=== PATIENT | female | born 1975 | race Caucasian/White ===

== ENCOUNTER 2017-02-11 00:25 | Emergency (ER) | payer MEDICAID ==
[2017-02-11] MEDS ORDERED: GABAPENTIN 300 MG CAPSULE PO ONE (02:12)
[2017-02-11] MEDS ORDERED: MORPHINE SULFATE IR 15 MG TABLET PO ONE (02:12)
--- NOTE | 2017-02-11 02:15 | ER Document Report ---
ED General - General Chief Complaint: Hand Pain Stated Complaint: HAND PAIN Time Seen by Provider: 02/11/17 01:40 Notes: Patient is a 41-year-old female with past medical history of bilateral carpal tunnel syndrome who presents with ongoing severe pain and swelling to the affected areas of bilateral hands. Describes the pain as a constant, severe, burning pain. Nothing worsens the pain. States she has been taking ibuprofen with minimal to no relief in the pain is to the point where she can no longer sleep. She was receiving Percocet and gabapentin from her primary care doctor but has not been able to revisit with him after running out of her medications. She denies any additional new or acute concerns. TRAVEL OUTSIDE OF THE [place] IN LAST 30 DAYS: No - Related Data Allergies/Adverse Reactions: No Known Allergies Allergy (Verified 08/31/16 09:38) Past Medical History - General Information source: Patient - Social History Smoking Status: Never Smoker Frequency of alcohol use: None Drug Abuse: None Lives with: Spouse/Significant other Family History: Reviewed & Not Pertinent Patient has suicidal ideation: No Patient has homicidal ideation: No - Past Medical History Cardiac Medical History: Denies: Hx Atrial Fibrillation, Hx Congestive Heart Failure, Hx Coronary Artery Disease, Hx DVT, Hx Heart Attack, Hx Hypercholesterolemia, Hx Hypertension, Hx Peripheral Vascular Disease, Hx Pulmonary Embolism, Hx Heart Murmur Pulmonary Medical History: Denies: Hx Asthma, Hx Bronchitis, Hx COPD, Hx Pneumonia, Hx Intubation, Hx Respiratory Failure, Hx Sleep Apnea, Hx Tuberculosis Neurological Medical History: Denies: Hx Migraine, Hx Seizures Endocrine Medical History: Denies: Hx Diabetes Mellitus Type 1, Hx Diabetes Mellitus Type 2, Hx Hyperthyroidism, Hx Hypothyroidism Renal/ Medical History: Denies: Hx End Stage Renal Disease, Hx Peritoneal Dialysis - Immunizations Hx Diphtheria, Pertussis, Tetanus Vaccination: Yes - 2011 Review of Systems - Review of Systems Notes: Constitutional: Negative for fever. HENT: Negative for sore throat. Eyes: Negative for visual changes. Cardiovascular: Negative for chest pain. Respiratory: Negative for shortness of breath. Gastrointestinal: Negative for abdominal pain, vomiting or diarrhea. Genitourinary: Negative for dysuria. Musculoskeletal: Positive for bilateral hand pain Skin: Negative for rash. Neurological: Negative for headaches, weakness or numbness. 10 point ROS negative except as marked above and in HPI. Physical Exam - Vital signs Vitals: Temp Pulse Resp BP Pulse Ox 98.0 F 78 16 170/116 H 99 02/11/17 00:28 02/11/17 00:28 02/11/17 00:28 02/11/17 00:28 02/11/17 00:28 Interpretation: Hypertensive Notes: PHYSICAL EXAMINATION: GENERAL: Well-appearing, well-nourished and in no acute distress. HEAD: Atraumatic, normocephalic. EYES: sclera anicteric, conjunctiva are normal. ENT: Moist mucous membranes. NECK: Normal range of motion LUNGS: Normal work of breathing HEART: 2+ radial pulses bilaterally EXTREMITIES: There is mild edema of the bilateral hands. Full flexion- extension of all digits bilaterally. Compartments are soft. NEUROLOGICAL: No focal neurological deficits. Moves all extremities spontaneously and on command. PSYCH: Normal mood, normal affect. SKIN: Warm, Dry, normal turgor, no rashes or lesions noted. Course - Re-evaluation Re-evalutation: 02/11/17 02:14 Patient presents with bilateral hand swelling with associated severe pain that she has had chronically in the past secondary to bilateral carpal tunnel syndrome. She has been following with her primary care doctor but has been unable to follow-up in his office secondary to transportation issues. She is scheduled to see neurology within the next several days. Patient's hands are visibly edematous and do appear exquisitely painful. Exam is consistent with acute carpal tunnel syndrome with associated edema and swelling. She will be restarted on gabapentin, ibuprofen and given a very small amount of oral morphine. She otherwise has strong radial pulses, full flexion and extension of all digits. At this time will discharge with return precautions and follow- up recommendations. Verbal discharge instructions given a the bedside and opportunity for questions given. Medication warnings reviewed. Patient is in agreement with this plan and has verbalized understanding of return precautions and the need for primary care follow-up in the next 24-72 hours. - Vital Signs Vital signs: Temp Pulse Resp BP Pulse Ox 98.0 F 78 16 170/116 H 99 02/11/17 00:28 02/11/17 00:28 02/11/17 00:28 02/11/17 00:28 02/11/17 00:28 Discharge - Discharge Clinical Impression: Bilateral carpal tunnel syndrome Condition: Good Disposition: HOME, SELF-CARE Additional Instructions: Please follow-up with your primary care doctor as soon as possible regarding her chronic pain in her hands. Take gabapentin 300 mg 3 times daily. For your pain: Take ibuprofen 600 mg and acetaminophen 1000 mg every 6 hours together as needed for pain. If this does not control your pain you may take 15 mg of oral morphine every 4 hours as needed. Please be very careful about using the oral morphine and only use this for severe pain. Return if you have worsening of your pain, developed fever, nausea, vomiting, spreading redness of the hands or any other symptoms that are worrisome to you. Prescriptions: Morphine Sulfate [Morphine Ir 15 mg Tablet] 15 mg PO Q4HP PRN #12 tablet PRN Reason: Gabapentin 300 mg PO TID #90 capsule Referrals: ESTEFANY GARCIA DO [Primary Care Provider] - Follow up tomorrow
[2017-02-11 02:32] VITALS: BP 163/96
== END 2017-02-11 02:35 | disposition home or self-care (01) ==
LOC: ER 00:25
DX: G56.03 Carpal tunnel syndrome, bilateral upper limbs (principal); M79.642 Pain in left hand; M79.641 Pain in right hand
CPT/HCPCS: 99283; J3490

== ENCOUNTER 2017-05-25 19:09 | Emergency (ER) | payer MEDICAID ==
[2017-05-25 19:20] VITALS: BP 136/96
[2017-05-25] MEDS ORDERED: LIDOCAINE 2% VISCOUS SOLN 20 ML UDCUP PO ONE (20:51)
[2017-05-25] MEDS ORDERED: KETOROLAC TROMETHAMINE 60 MG/2 ML SDV IM ONE (20:51)
--- NOTE | 2017-05-25 20:58 | ER Document Report ---
ED Oral Problem - General Chief Complaint: Toothache Stated Complaint: TOOTH PAIN Time Seen by Provider: 05/25/17 20:38 Mode of Arrival: Ambulatory Information source: Patient Notes: 41-year-old female presents to ED for dental pain and the right lower jaw 4 days. She states she Fell off her tooth. She also states she has pain in her left ear for the last several days. She states she also has throbbing in both hands from her carpal tunnel. TRAVEL OUTSIDE OF THE [place] IN LAST 30 DAYS: No - HPI Patient complains to provider of: Toothache, Other - left ear pain and bilateral hand pains. The bilateral hand pains is chronic from carpal tunnel and she sees a doctor that she gets Neurontin for. I explained to her that she need to follow-up with her doctor for the Neurontin Onset: Other - Dental pain 4 days left ear pain 4 days Severity: Moderate Pain Level: 4 Context: Other - Fell off of her tooth in the right lower jaw Associated symptoms: Earache, Toothache, Other - Pain in her hands Worsened by: Cold Relieved by: Nothing Similar symptoms previously: Yes Recently seen / treated by doctor/dentist: No - Related Data Allergies/Adverse Reactions: No Known Allergies Allergy (Verified 05/25/17 19:19) Past Medical History - General Information source: Patient - Social History Smoking Status: Never Smoker Cigarette use (# per day): No Chew tobacco use (# tins/day): No Smoking Education Provided: No Frequency of alcohol use: None Drug Abuse: None Lives with: Spouse/Significant other Family History: Reviewed & Not Pertinent Patient has suicidal ideation: No Patient has homicidal ideation: No - Past Medical History Cardiac Medical History: Reports: None Pulmonary Medical History: Reports: None EENT Medical History: Reports: None Neurological Medical History: Reports: None Endocrine Medical History: Reports: None Renal/ Medical History: Reports: None Malignancy Medical History: Reports: None GI Medical History: Reports: None Musculoskeltal Medical History: Reports Hx Musculoskeletal Deformity, Reports Hx Musculoskeletal Trauma Skin Medical History: Reports None Psychiatric Medical History: Reports: None Traumatic Medical History: Reports: None Infectious Medical History: Reports: None Surgical Hx: Negative Past Surgical History: Reports: None - Immunizations Hx Diphtheria, Pertussis, Tetanus Vaccination: Yes - 2011 Review of Systems - Review of Systems Constitutional: No symptoms reported EENT: Ear pain, Dental problem Cardiovascular: No symptoms reported Respiratory: No symptoms reported Gastrointestinal: No symptoms reported Genitourinary: No symptoms reported Female Genitourinary: No symptoms reported Musculoskeletal: Other - Chronic bilateral hand pain Skin: No symptoms reported Hematologic/Lymphatic: No symptoms reported Neurological/Psychological: No symptoms reported -: Yes All other systems reviewed and negative Physical Exam - Vital signs Vitals: Temp Pulse Resp BP Pulse Ox 98.4 F 75 14 136/96 H 99 05/25/17 19:17 05/25/17 19:17 05/25/17 19:17 05/25/17 19:17 05/25/17 19:17 Interpretation: Normal - General General appearance: Appears well, Alert - HEENT Head: Normocephalic, Atraumatic Eyes: Normal Pupils: PERRL Ears: Normal External canal: Normal Tympanic membrane: Normal Sinus: Normal Nasal: Swelling, Clear rhinorrhea Mouth/Lips: Caries - Cap fell off of the tooth on the lower right jaw 4 days ago pain in the area no redness or swelling. Mucous membranes: Normal Pharynx: Normal Neck: Normal - Respiratory Respiratory status: No respiratory distress Chest status: Nontender Breath sounds: Normal Chest palpation: Normal - Cardiovascular Rhythm: Regular Heart sounds: Normal auscultation Murmur: No - Abdominal Inspection: Normal Distension: No distension Bowel sounds: Normal Tenderness: Nontender Organomegaly: No organomegaly - Back Back: Normal, Nontender - Extremities General upper extremity: Normal inspection, Nontender, Normal color, Normal ROM , Normal temperature General lower extremity: Normal inspection, Nontender, Normal color, Normal ROM , Normal temperature, Normal weight bearing. No: Leah's sign - Neurological Neuro grossly intact: Yes Cognition: Normal Orientation: AAOx4 [place] Coma Scale Eye Opening: Spontaneous [place] Coma Scale Verbal: Oriented [place] Coma Scale Motor: Obeys Commands [place] Coma Scale Total: 15 Speech: Normal Motor strength normal: LUE, RUE, LLE, RLE Sensory: Normal - Psychological Associated symptoms: Normal affect, Normal mood - Skin Skin Temperature: Warm Skin Moisture: Dry Skin Color: Normal Course - Re-evaluation Re-evalutation: 05/25/17 21:07 Patient was treated with viscous lidocaine to the sore tooth and Toradol IM for the pain. Patient will be discharged home to follow-up with her primary doctor for her chronic hand pain. Patient was instructed to follow-up with a dentist to have the tooth corrected. - Vital Signs Vital signs: Temp Pulse Resp BP Pulse Ox 98.4 F 75 14 136/96 H 99 05/25/17 19:17 05/25/17 19:17 05/25/17 19:17 05/25/17 19:17 05/25/17 19:17 Discharge - Discharge Clinical Impression: Pain due to dental caries, Earache on left Chronic hand pain Qualifiers: Laterality: unspecified laterality Qualified Code(s): M79.643 - Pain in unspecified hand URI (upper respiratory infection) Qualifiers: URI type: unspecified URI Qualified Code(s): J06.9 - Acute upper respiratory infection, unspecified Condition: Stable Disposition: HOME, SELF-CARE Additional Instructions: TOOTHACHE: Your pain is due to dental decay. The tooth must be repaired in order for you to feel better. You will, therefore, be referred to a dentist. We do not have dentists on the staff at [facility]. Severe swelling or drainage around a tooth usually means a dental abscess. This also requires evaluation and treatment by the dentist, but antibiotics may be prescribed while awaiting dental treatment. You should be rechecked immediately if you develop major swelling of the face, increasing pain, a lump in the jaw or gums, headache, difficulty swallowing, or fever. You were given viscous lidocaine in the syringe for your dental pain. Space a small amount of that on your finger and put it in the tooth and around the tooth. Please sure to follow-up with a dentist as soon as possible. Toradol Injection You have been given an injection of ketorolac tromethamine (Toradol). This is an excellent, safe drug for pain control. It also has potent antiinflammatory action. You should have significant pain relief within about one hour. Toradol is not addicting and is non-sedating. It does not interfere with driving or work. Call or return if you develop itching, hives, shortness of breath, or rash. FOLLOW-UP CARE: You have been referred for follow-up care to the dentists listed below. Call the dentists office for an appointment as you were instructed or within the next two days. If you experience worsening or a significant change in your symptoms, notify the physician immediately or return to the Emergency Department at any time for re-evaluation. [facility] [address] [place], [place] mornings, by appointment [facility] [address] [place] [address] [facility] [address] [facility] [address] [place] Emergency Department [facility] [address] [email or web address] [address] [place] [address] Tuesday- 8:00am to 5:00 pm Will see patients from other [facility] Charges based on income and family size and accepts Medicare, Medicaid, and Insurances Will pull molars [facility] [employer] [facility] [id number] Hours of Operation 8:00 am - 4:30 pm weekdays The following dental offices accept Medicaid: [facility] Dr. Gr[address] Dr. Marvin Dr. Hendrix Dr. Mata Pool Cruz Lutsavage, and [facility] oral surgery Dr. Iqbal ([place]) Dr. Burkett ([place]) [facility] Drs. Almaraz and Uvaldo ([place]) Dr. Hopson ([place]) [facility] Dr. Moya ([place]) Drs. Alonzo and Scholar ([place]) Medicaid Care Line Referrals: ESTEFANY GARCIA, [Primary Care Provider] - Follow up as needed
== END 2017-05-25 21:22 | disposition home or self-care (01) ==
LOC: ER 19:09
DX: J06.9 Acute upper respiratory infection, unspecified (principal); H92.02 Otalgia, left ear; K02.9 Dental caries, unspecified; K08.89 Other specified disorders of teeth and supporting structures; M79.642 Pain in left hand; M79.641 Pain in right hand; R68.84 Jaw pain
CPT/HCPCS: 99282; J1885; J3490

== ENCOUNTER 2018-03-30 16:39 | Inpatient (IN) | payer OTHER, MEDICAID ==
[2018-03-30] MEDS ORDERED: HYDRALAZINE HCL INJ/PF 20 MG/1 ML SDV IV ONE ×3 (17:18→19:30)
[2018-03-30] MEDS ORDERED: RINGERS SOLUTION,LACTATED 1,000 ML IV PRN (17:20)
[2018-03-30] MEDS ORDERED: HYDRALAZINE HCL INJ/PF 20 MG/1 ML SDV ONE ×2 (17:21→20:03)
[2018-03-30 18:02] LABS: APPEARANCE,URINE TURBID; BILIRUBIN,URINE NEGATIVE (NEGATIVE); GLUCOSE, URINE NEGATIVE (NEGATIVE); KETONES,URINE NEGATIVE (NEGATIVE); LEUKOCYTE ESTERASE,URINE MODERATE (NEGATIVE); NITRITE,URINE NEGATIVE (NEGATIVE); PROTEIN,URINE 100 mg/dL (NEGATIVE); URINE SPECIFIC GRAVITY 1.025
[2018-03-30 18:12] LABS: URINE AMPHETAMINES SCREEN NEGATIVE; URINE BARBITURATES SCREEN NEGATIVE; URINE BENZODIAZEPINES SCREEN NEGATIVE; URINE COCAINE SCREEN NEGATIVE; URINE MARIJUANA (THC) SCREEN NEGATIVE; URINE METHADONE SCREEN NEGATIVE; URINE PHENCYCLIDINE SCREEN NEGATIVE
[2018-03-30 18:13] LABS: COLOR,URINE YELLOW
[2018-03-30] MEDS ORDERED: ACETAMINOPHEN 325 MG TABLET ONE (18:24)
[2018-03-30 18:27] LABS: ABSOLUTE LYMPHOCYTES (AUTO) 2.3 10^3/uL (0.5-4.7); ABSOLUTE MONOCYTES (AUTO) 0.5 10^3/uL (0.1-1.4); ABSOLUTE NEUT (AUTO) 3.9 10^3/uL (1.7-8.2); BASOPHILS % (AUTO) 0.3 % (0-2); EOSINOPHILS % (AUTO) 0.7 % (0-6); HEMATOCRIT 34.3 % (36.0-47.0); MEAN CORPUSCULAR HEMOGLOBIN 31.9 pg (27.0-33.4); MEAN CORPUSCULAR HGB CONC 34.8 g/dL (32.0-36.0); MEAN CORPUSCULAR VOLUME 92 fl (80-97); MONOCYTES % (AUTO) 7.2 % (3-13); PLATELET COUNT 138 10^3/uL (150-450); RED BLOOD COUNT 3.76 10^6/uL (3.72-5.28); RED CELL DISTRIBUTION WIDTH 13.4 % (11.5-14.0); SEGMENTED NEUTROPHILS % (AUTO) 57.8 % (42-78); TOTAL CELLS COUNTED % (AUTO) 100 %; WHITE BLOOD COUNT 6.7 10^3/uL (4.0-10.5)
[2018-03-30] MEDS ORDERED: ACETAMINOPHEN 325 MG TABLET PO ONE (18:33)
[2018-03-30 19:02] LABS: ALANINE AMINOTRANSFERASE 79 U/L (9-52); ALBUMIN 3.1 g/dL (3.5-5.0); ALKALINE PHOSPHATASE 132 U/L (38-126); ANION GAP 10 (5-19); ASPARTATE AMINO TRANSFERASE 69 U/L (14-36); BILIRUBIN,DIRECT 0.3 mg/dL (0.0-0.4); BILIRUBIN,TOTAL 0.5 mg/dL (0.2-1.3); BLOOD UREA NITROGEN 13 mg/dL (7-20); CALCIUM 8.5 mg/dL (8.4-10.2); CARBON DIOXIDE 23 mmol/L (22-30); CHLORIDE 106 mmol/L (98-107); GLUCOSE 73 mg/dL (75-110); POTASSIUM 3.3 mmol/L (3.6-5.0); SODIUM 138.8 mmol/L (137-145)
[2018-03-30 19:44] LABS: RUBELLA INTERPRETATION POSITIVE
--- NOTE | 2018-03-30 19:59 | RADIOLOGY REPORT (SQ) ---
EXAM DESCRIPTION: U/S OB 14+ TRNABD 1GES W/O DOP COMPLETED DATE/TIME: 03/30/2018 7:42 pm REASON FOR STUDY: no care, needs anatomy scan and EDC COMPARISON: None. TECHNIQUE: Static and Dynamic grayscale imaging performed of gravid uterus using transabdominal appr oach. Additional selected color Doppler and spectral images recorded. All stored on PACS. LIMITATIONS: None. FINDINGS: EGA: 33 weeks 0 days EYSSENIA: 05/18/2018 EFW: 1947 grams PERCENTILE: Not reported BENTON: 13.2 cm PLACENTA: Anterior small scattered echogenic foci. Small inferior placental bleed 1.5 cm in greates t dimension. PRESENTATION: Cephalic. ANATOMY: HEART RATE: 144 beats per minute. FOUR CHAMBER HEART: Visualized. THREE VESSEL CORD: Yes. CORD INSERTION: Visualized. KIDNEYS AND BLADDER: Visualized. Appear normal. STOMACH: Visualized. Appears normal. SPINE: Limited visualization BRAIN AND LATERAL VENTRICLES: Visualized. Appear normal. OTHER: No other significant finding. MATERNAL ADNEXA: Maternal ovaries not visualized. CERVICAL LENGTH: 3.1 cm Closed. OTHER: No other significant finding. IMPRESSION: Small inferior placental bleed 1.5 cm in greatest dimension. LIVING INTRAUTERINE . ESTIMATED GESTATIONAL AGE 33 weeks 0 days Trimester of : Third trimester - 28 weeks to delivery. TECHNICAL DOCUMENTATION: JOB ID: [id number] [id number] 2010 [employer]- All Rights Reserved Reading location - IP/workstation name: [email or web address]
[2018-03-30] MEDS ORDERED: MAGNESIUM SULFATE 4 GM/100 ML RTUPB IV ONE ×2 (20:39→20:49)
[2018-03-30] MEDS ORDERED: BETAMET ACET/BETAMET NA INJ 6 MG/1 ML IM SCH (20:45)
[2018-03-30] MEDS ORDERED: BETAMET ACET/BETAMET NA INJ 6 MG/1 ML ONE (20:48)
[2018-03-30] MEDS ORDERED: MAGNESIUM SULFATE 20 GM/500 ML RTUINJ IV ONE (20:49)
[2018-03-30] MEDS ORDERED: LABETALOL HCL 200 MG TABLET ONE (20:49)
[2018-03-30] MEDS: LABETALOL HCL 200 MG TABLET PO SCH (21:05)
[2018-03-30] MEDS: MAGNESIUM SULFATE 20 GM/500 ML RTUINJ IV PRN (21:53)
[2018-03-30 22:44] LABS: URINE CREATININE 548.1 mg/dL (15-278)
[2018-03-31] MEDS ORDERED: ZOLPIDEM TARTRATE 5 MG TABLET PO ONE (00:47)
[2018-03-31] MEDS ORDERED: ACETAMINOPHEN 325 MG TABLET PO ONE (00:47)
[2018-03-31] MEDS ORDERED: ACETAMINOPHEN 325 MG TABLET ONE (00:50)
[2018-03-31] MEDS ORDERED: ZOLPIDEM TARTRATE 5 MG TABLET ONE (00:51)
--- NOTE | 2018-03-31 05:33 | Admission Physical ---
Datetime Report Generated by CPN: 03/31/2018 05:32 CURRENT ADMISSION Chief Complaint: Signs/Symptoms Gestational HTN Indication for Induction: Not Applicable Admit Impression : , Intrauterine Admit Plan: Admit to Unit; Observation/Evaluation ALLERGIES Medication Allergies: No Medication Allergies: No Known Allergies (05/25/2017) Latex: No Latex Allergies OBSTETRICAL HISTORY EDC: 05/18/2018 00:00 : 12 Para: 11 Ectopic: 0 Livin Cesareans: 0 VBACs: 0 Multiple Births: 0 SEE RECORDS Alcohol: Yes Marijuana : No Cocaine: No Other Illicit Drugs: No Cigarettes: Current Everyday Smoker. [id number] PHYSICAL EXAM General: Normal HEENT: Normal Neurologic: Normal Thyroid: Deferred Heart: Normal Lungs: Normal Breast: Deferred Back: Normal Abdomen: Normal Genitourinary Exam: Normal Extremities: Normal DTRs: Normal Pelvic Type: Adequate Vital Signs: Reviewed VAGINAL EXAM Dilatation: ft Effacement: th Station: hi Contraction Comments: none MEMBRANES Membranes: Intact FETUS A EGA: 33.0 Monitoring: External US FHR- Baseline: 125 Variability: Minimal - Undetectable to <=5bpm Accelerations: 15X15 Decelerations: None FHR Category: Category I Estimated Weight (gm): 1947 Presentation: Vertex Admit Comment: 42yo presents for evaluation by EMS due to feeling bad at nursing home tonight. She was arrested yesterday per report. Pt states unknown LMP due to irreg menses. SHe reports that she was told in [place] that she was 22wks and could not terminate - but can not remember when she had this evaluation. US today 33wks. Possible small inferior placental bleed noted 1.5cm. Pt with severe range BPs requiring Hydralazine on several occasions. Admit for labs and 24 hr UTP. Magnesium sulfate and BMZ given. Unsure dating. PLANS FOR LABOR AND DELIVERY Labor and Delivery: None Pain Management: Epidural Feeding Preference: Breast Benefit of Breast Feed Discussed: Yes INFORMED CONSENT Informed Consent Obtained: Risks, Benefits and Alternatives Discussed Signature: with User ID: [email or web address]
[2018-03-31 05:38] LABS: ABSOLUTE LYMPHOCYTES (AUTO) 1.2 10^3/uL (0.5-4.7); ABSOLUTE MONOCYTES (AUTO) 0.1 10^3/uL (0.1-1.4); ABSOLUTE NEUT (AUTO) 5.9 10^3/uL (1.7-8.2); BASOPHILS % (AUTO) 0.5 % (0-2); HEMATOCRIT 34.5 % (36.0-47.0); LYMPHOCYTES % (AUTO) 16.4 % (13-45); MEAN CORPUSCULAR HGB CONC 34.7 g/dL (32.0-36.0); MEAN CORPUSCULAR VOLUME 92 fl (80-97); MONOCYTES % (AUTO) 1.1 % (3-13); PLATELET COUNT 139 10^3/uL (150-450); RED BLOOD COUNT 3.75 10^6/uL (3.72-5.28); RED CELL DISTRIBUTION WIDTH 13.4 % (11.5-14.0); TOTAL CELLS COUNTED % (AUTO) 100 %; WHITE BLOOD COUNT 7.2 10^3/uL (4.0-10.5)
[2018-03-31] MEDS ORDERED: HYDROXYZINE PAMOATE 50 MG CAPSULE ONE (05:40)
[2018-03-31] MEDS ORDERED: HYDROXYZINE PAMOATE 50 MG CAPSULE PO ONE (05:49)
[2018-03-31 06:00] LABS: ALANINE AMINOTRANSFERASE 72 U/L (9-52); ALKALINE PHOSPHATASE 132 U/L (38-126); ANION GAP 12 (5-19); ASPARTATE AMINO TRANSFERASE 59 U/L (14-36); BILIRUBIN,DIRECT 0.4 mg/dL (0.0-0.4); BILIRUBIN,TOTAL 0.5 mg/dL (0.2-1.3); BLOOD UREA NITROGEN 10 mg/dL (7-20); CALCIUM 7.6 mg/dL (8.4-10.2); CARBON DIOXIDE 19 mmol/L (22-30); CHLORIDE 106 mmol/L (98-107); GLUCOSE 140 mg/dL (75-110); POTASSIUM 3.5 mmol/L (3.6-5.0); SODIUM 136.5 mmol/L (137-145); TOTAL PROTEIN 5.7 g/dL (6.3-8.2); URIC ACID 7.4 mg/dL (2.5-7.0)
[2018-03-31] MEDS: MAGNESIUM SULFATE 20 GM/500 ML RTUINJ IV PRN (08:21)
[2018-03-31] MEDS ORDERED: HYDROMORPHONE HCL 2 MG TABLET PO ONE (09:16)
[2018-03-31] MEDS ORDERED: HYDROMORPHONE HCL INJ/PF 2 MG/ML AMPULE ONE (09:37)
--- NOTE | 2018-03-31 09:45 | PDOC DISCHARGE SUMMARY ---
General - Admit/Disc Date/PCP Admission Date/Primary Care Provider: 03/30/18 20:46 ESTEFANY GARCIA, Pt is a 42 yo sent from shelter for elevated BP and with no care. Discharge Date: 03/31/18 - Discharge Diagnosis (1) AMA (advanced maternal age) multigravida 35+ Is this a current diagnosis for this admission?: Yes (2) Hypertension affecting , delivered, current hospitalization Is this a current diagnosis for this admission?: Yes (3) No care in current Is this a current diagnosis for this admission?: Yes History of Present Illness History of Present Illness: CHILO BENOIT is a 42 year old female Hospital Course Hospital Course: She presents with severe range blood pressures at 33 wks by ultrasound today. Currently she is on Mg SO4. It is uncertain if she has very bad chronic HTN or preeclampsia. Dates are uncertain as well as there is no care. She has been given steroids as well. We plan transfer to tertiary care for further evaluation. Physical Exam - Physical Exam Vital Signs: Intake & Output 03/30/18 03/31/18 04/01/18 06:59 06:59 06:59 Intake Total 100 500 Balance 100 500 Weight 89.4 kg General appearance: PRESENT: mild distress - complains of headache, neuro exam is intact GI/Abdominal exam: PRESENT: soft - abdomen is gravid and nontender Result Laboratory Results: 03/31/18 05:24 03/31/18 05:24 03/30/18 03/30/18 03/30/18 17:00 17:50 17:50 WBC 6.7 RBC 3.76 Hgb 12.0 Hct 34.3 L MCV 92 MCH 31.9 MCHC 34.8 RDW 13.4 Plt Count 138 L Seg Neutrophils % 57.8 Lymphocytes % 34.0 Monocytes % 7.2 Eosinophils % 0.7 Basophils % 0.3 Absolute Neutrophils 3.9 Absolute Lymphocytes 2.3 Absolute Monocytes 0.5 Absolute Eosinophils 0.0 Absolute Basophils 0.0 Sodium 138.8 Potassium 3.3 L Chloride 106 Carbon Dioxide 23 Anion Gap 10 BUN 13 Creatinine 0.95 Est GFR ( Amer) > 60 Est GFR (Non-Af Amer) > 60 Glucose 73 L Uric Acid 8.0 H Calcium 8.5 Total Bilirubin 0.5 AST 69 H ALT 79 H Alkaline Phosphatase 132 H Total Protein 6.0 L Albumin 3.1 L Urine Color YELLOW Urine Appearance TURBID Urine pH 5.0 Ur Specific [place] 1.025 Urine Protein 100 H Urine Glucose (UA) NEGATIVE Urine Ketones NEGATIVE Urine Blood NEGATIVE Urine Nitrite NEGATIVE Ur Leukocyte Esterase MODERATE H Urine WBC (Auto) 29 Urine RBC (Auto) 8 Blood Type Antibody Screen 03/30/18 03/31/18 03/31/18 17:50 05:24 05:24 WBC 7.2 RBC 3.75 Hgb 12.0 Hct 34.5 L MCV 92 MCH 32.0 MCHC 34.7 RDW 13.4 Plt Count 139 L Seg Neutrophils % 82.0 H Lymphocytes % 16.4 Monocytes % 1.1 L Eosinophils % 0.0 Basophils % 0.5 Absolute Neutrophils 5.9 Absolute Lymphocytes 1.2 Absolute Monocytes 0.1 Absolute Eosinophils 0.0 Absolute Basophils 0.0 Sodium 136.5 L Potassium 3.5 L Chloride 106 Carbon Dioxide 19 L Anion Gap 12 BUN 10 Creatinine 0.76 Est GFR ( Amer) > 60 Est GFR (Non-Af Amer) > 60 Glucose 140 H Uric Acid 7.4 H Calcium 7.6 L Total Bilirubin 0.5 AST 59 H ALT 72 H Alkaline Phosphatase 132 H Total Protein 5.7 L Albumin 3.0 L Urine Color Urine Appearance Urine pH Ur Specific [place] Urine Protein Urine Glucose (UA) Urine Ketones Urine Blood Urine Nitrite Ur Leukocyte Esterase Urine WBC (Auto) Urine RBC (Auto) Blood Type O POSITIVE Antibody Screen NEGATIVE Impressions: Obstetrics Ultrasound 03/30/18 00:00 IMPRESSION: Small inferior placental bleed 1.5 cm in greatest dimension. LIVING INTRAUTERINE . ESTIMATED GESTATIONAL AGE 33 weeks 0 days Trimester of : Third trimester - 28 weeks to delivery. Plan Discharge Plan: Plan to transfer for futher evaluation and possible delivery.
[2018-03-31] MEDS ORDERED: HYDROMORPHONE HCL 2 MG TABLET ONE (09:49)
[2018-03-31] MEDS: LABETALOL HCL 200 MG TABLET PO SCH (09:55)
[2018-04-01 05:40] LABS: HEPATITIS C VIRUS AB >11.0 s/co ratio (0.0-0.9)
[2018-04-02 06:07] LABS: HEPATITS B SURFACE ANTIGEN Negative (Negative)
== END 2018-03-31 13:27 | disposition short-term general hospital (02) | DRG 782 ==
LOC: LC 16:39 → LR 20:46
PROVIDERS: ADMIT Student in an Organized Health Care Education/Training Program; ATTEND Student in an Organized Health Care Education/Training Program
PROC: 4A1HXCZ Monitoring of Products of Conception, Cardiac Rate, External Approach (ICD-10-PCS; principal; 2018-03-30)
DX: O13.3 Gestational [pregnancy-induced] hypertension without significant proteinuria, third trimester (principal); O99.333 Smoking (tobacco) complicating pregnancy, third trimester; F17.210 Nicotine dependence, cigarettes, uncomplicated; Z3A.33 33 weeks gestation of pregnancy
CPT/HCPCS: 36415; 76805; 80053; 80307; 81001; 82570; 83615; 84156; 84550; 85025; 86592; 86701; 86762; 86787; 86803; 86804; 86850; 86900; 86901; 87340; 94760; J0360; J0702; J1170; J3475